=== PATIENT | female | born 1970 | race Caucasian/White ===

== ENCOUNTER 2018-05-25 19:50 | Inpatient (IN) ==
[2018-05-25] MEDS ORDERED: Morphine Sulfate Inj 2 MG/ML Vial ONE (20:00)
--- NOTE | 2018-05-25 20:06 | XR ---
EXAM DATE: 05/25/2018 8:02 PM EDT AGE/SEX: 89 years / Female INDICATIONS: Trauma alert, blunt force trauma from ladder. CLINICAL DATA: This is the patient's initial encounter. Patient reports that signs and symptoms have been present for 1 day and indicates a pain score of Nonresponsive. MEDICAL/SURGICAL HISTORY: Non-responsive. Non-responsive. COMPARISON: No prior exams available for comparison. FINDINGS: A single portable supine view the chest was obtained and demonstrate overlying artifact from a backbo michel. There is increased soft tissue density projected over the left side of the chest the heart size is at the upper limits of normal. The bony thorax is intact in appearance. There is no mediastinal sh ift. CONCLUSION: Fusing Machine Feeder soft tissue density over the left side of the chest which could be due to an overlying breast implant or soft tissue swelling. Infiltrate could also have this appearance. Electronically signed by: Javier Small MD 05/25/2018 8:05 PM EDT
--- NOTE | 2018-05-25 20:07 | XR ---
EXAM DATE: 05/25/2018 8:03 PM EDT AGE/SEX: 89 years / Female INDICATIONS: Trauma alert, blunt force trauma from ladder. CLINICAL DATA: This is the patient's initial encounter. Patient reports that signs and symptoms have been present for 1 day and indicates a pain score of Nonresponsive. MEDICAL/SURGICAL HISTORY: Non-responsive. Non-responsive. COMPARISON: No prior exams available for comparison. FINDINGS: A single AP view of the pelvis was obtained and demonstrates overlying artifact from a backboard. The hips are intact and there is no visualized fracture or malalignment. The pubic rami are unremarkable . The sacrum is within normal limits. CONCLUSION: Negative trauma study. Electronically signed by: Javier Small MD 05/25/2018 8:05 PM EDT
--- NOTE | 2018-05-25 20:10 | ED ---
HPI General Chief Complaint: Trauma Stated Complaint: Trauma Alert Time Seen by Provider: 05/25/18 22:10 Source: patient and EMS Mode of arrival: EMS Limitations: language barrier (Patient is Tajik-speaking, however the medical staff directorDomenic pacheco assisted with translation.) History of Present Illness HPI narrative: The patient is a reportedly 47 year old female who presents to the [facility] emergency department with a history of being called as a trauma alert prior to arrival related to a head injury. The patient was noted by ambulance services to have had a loss of consciousness after being hit in the head with the latter. The ladder fell off of the roof at the [facility]. The patient was standing by poolside when she was struck in the head and had a positive loss of consciousness. The patient was unconscious for a couple of minutes reportedly. The patient then had a return of her GCS back to a 15. The patient's pulse was in the 90s prior to arrival. Blood pressure was 130 systolic. The patient reports having a headache. She denies having any neck pain. She denies having any numbness or tingling to her extremities. She reports having some left upper back pain, thoracic pain. She denies having any shortness of breath. She denies having any abdominal pain. She denies having any vomiting or diarrhea. The patient reports that her tetanus has not been updated in the last 10 years. LMP status post hysterectomy Related Data Home Medications Medication Instructions Recorded Confirmed No Known Home Medications 05/25/18 05/25/18 Allergies Allergy/AdvReac Type Severity Reaction Status Date / Time No Known Allergies Allergy Verified 05/25/18 21:16 Review of Systems ROS: all other systems reviewed are negative (Except for that which is mentioned in the HPI.) [facility] Medical History Medical History H/O: hysterectomy (Acute) Patient denies medical problems (Acute) Surgical History Surgical History History of breast augmentation (Acute) Social History Social History Substance History: No History of Abuse Second Hand Smoke Exposure: No Smoking Status: Never smoker How Often Do You Have a Drink Containing Alcohol: 2 to 4 times a month Recent Travel in [place] within the Last 8 Weeks: No Recent Out of Country Travel within the Last 8 Weeks: No Immunization History Tetanus Immunization: >5 Years Exam Narrative Exam Narrative: General: The patient is a well-developed well-nourished female in no acute distress, pressure bandage in place over her head, no active bleeding to the pressure bandage is noted. The patient is brought in on a back board in full c-spine immobilization by emergency services. Head and Neck exam: Head is normocephalic, reported history of large scalp and upper forehead laceration, bleeding is controlled with a pressure bandage, therefore initial assessment was continued while the pressure bandage was maintained in place. No facial bone tenderness or increased facial bone mobility noted on palpation. Eyes: EOMI, pupils are equal round and reactive to light. Nose: Midline septum with pink mucous membranes Mouth: Dentition unremarkable. Moist mucus membranes. Posterior oropharynx is not erythematous. No tonsillar hypertrophy. Uvula midline. Airway patent. Neck: The patient is immobilized in a cervical collar. No tracheal deviation. The trachea appears midline. Cardiovascular: Regular rate and rhythm without murmurs, gallops, or rubs. No pulse deficit to the extremities on simultaneous auscultation and palpation of her radial artery. Lungs: Clear to auscultation bilaterally. No wheezes, rhonchi, or rales. No chest wall tenderness to palpation. No erythema or ecchymosis noted. No crepitus , step off, or flail segment noted. Abdomen: Soft, without tenderness to palpation in all 4 quadrants of the abdomen. No guarding, rebound, or rigidity. No erythema or ecchymosis noted. Extremities: No instability or pain noted on pelvic rock. No clubbing, cyanosis , or edema. 2+ pulses in all 4 extremities. No extremity tenderness or deformity noted on palpation or passive/ active range of motion. Back: The patient was log rolled off of the back board. No spinous process tenderness to palpation. No stepoff or crepitus noted. No costovertebral angle tenderness to palpation. No erythema or ecchymosis. Neurologic Exam: Cranial nerves 2-12 were intact on exam. Strength is 5/5 in all 4 extremities. No sensory deficits noted. Skin Exam: No rash noted. Intact skin that is warm and dry. Course Reevaluation(s) Reevaluation #1: Reevaluation the patient had her pressure bandage is removed and a large curvilinear scalp laceration was noted along the top of the patient' s skull, border between parietal and occipital scalp. There was a hematoma underlying the flap which was evacuated. Bleeding was controlled with a pressure bandage. Dr. Hendricks was available at the bedside to evaluate the wound. He recommended continuation of the pressure bandage. Consultations Consultation #1: The patient's case including history, vital signs prior to arrival, trauma alert status were discussed with Dr. Hendricks. He recommended that the patient be downgraded to a level 2 trauma alert as the patient did not meet criteria for a level 1 trauma alert as called by ambulance services. He recommended that I initially assess the patient and discuss further with him by phone. Time: 19:39 Consultation #2: The patient's case including history, pertinent physical examination findings, and laboratory studies were discussed with Dr. Rodriguez. He recommended that the patient be placed in a [place] J collar. Time: 21:28 Time: 22:03 Additional Consultation(s): I spoke to Dr. Rodriguez again, the neurosurgeon regarding this patient's case. We discussed the patient's cervical spine fracture which she reports is stable, he recommends continuation of the [place] J collar until he evaluates the patient in the morning. We also discussed the patient's comminuted mild compression fracture deformity at T5 with no retropulsion. He reports that this also appears to be stable. He will see the patient in the morning regarding these injuries. A call was placed out to Dr. Hendricks team to update him regarding the image findings. He recommends that the patient be admitted to a regular floor. After reexamination of the patient's scalp wound, bleeding is controlled. He requests that the patient's scalp wound be cleaned, stapled by the physician tax accounting assistantCat Pinto was consulted regarding wound irrigation and repair. Initial Documented Vital Signs Pulse Oximetry 100 05/25/18 19:51 Last Documented Vital Signs Temperature 98.3 F 05/26/18 12:00 Pulse Rate 86 05/26/18 12:00 Respiratory Rate 16 05/26/18 12:00 Blood Pressure 92/56 L 05/26/18 12:00 Pulse Oximetry 95 05/26/18 12:00 Procedures Laceration Laceration 1: Site: scalp Size (cm): 20 Description: linear Depth: simple, single layer Anesthetic used: lidocaine 1% Anesthesia technique:: local infiltration Amount (mL): 30 Pre-repair:: wound explored and irrigated extensively Number of sutures:: 44 Technique:: other (yudi) Critical Care Time Critical Care Time: Yes Total Critical Care Time: 37 Attestation: Aggregate critical care time was 37 minutes. Time to perform other separately billable procedures was not included in the critical care time. My time did not include minutes spent treating any other patients simultaneously or on activities that did not directly contribute to the patient's treatment. The services I provided to this patient were to treat and/or prevent clinically significant deterioration that could result in: Cardiovascular collapse from hemorrhagic shock, versus respiratory failure from significant head injury I provided critical care services requiring my management, as noted below: Chart data review, documentation time, medication orders and management, vital sign assessments/reviewing monitor data, ordering and reviewing lab tests, ordering and interpreting/reviewing x-rays and diagnostic studies, care of the patient and discussion of the patient with the admitting physicians. Medical Decision Making MDM Narrative Medical decision making narrative: with no acute fracture, no acute intracranial abnormality, CT scan of the C-spine showedDuring the course of the patient's emergency department visit, the patient's history, examination, and differential diagnosis were reviewed with the patient. The patient was placed on a color television console monitor with oximetry and frequent blood pressure monitoring. The patient had large-bore IVs placed in bilateral upper extremities. The patient started on normal saline IV fluids. An i-STAT with creatinine was ordered. Chest x-ray, pelvis x-ray was ordered. The patient was initially provided an update to her tetanus, Ancef 2 g IV was ordered, will saline IV fluids were started, the patient was given Zofran 4 mg IV for nausea, morphine 2 mg IV for pain. CT scan of the head, neck, facial bones, chest, abdomen and pelvis was ordered. The patient's i-STAT with creatinine was remarkable for a hemoglobin of 11.9, creatinine 0.8. The patient's chest x-ray in the trauma bay revealed what appeared to be increased haziness in the left lung field. A CT scan of the thorax has been ordered to further evaluate. The patient's lung olivas are partially obscured related to her breast implants. Pelvis x-ray showed no acute abnormality. The patient had a CT scan of the brain that showed soft tissue swelling over the upper skull, no other acute abnormality, CT scan of the cervical spine showed a nondisplaced horizontal fracture through the posterior lamina of the C6 vertebral body, CT scan of the facial bones showed no acute abnormality, CT scan of the thoracic spine revealed a comminuted mild compression fracture deformity at T5 vertebral body with no retropulsion, CT scan of the lumbar spine showed no acute abnormality, CT scan of the chest showed no acute visceral or lung abnormality, CT scan of the abdomen and pelvis showed no acute abnormality. The patient's case was discussed with the trauma surgeon, Dr. Hendricks as well as the neurosurgeon on-call, Dr. Rodriguez. The patient's results were discussed with the patient, including the plan of care. I explained that further testing and/ or monitoring is indicated based on the patient's history, examination, and/ or laboratory findings. Therefore, I recommended admission for additional evaluation. The patient expressed understanding and was agreeable with this plan. The patient was admitted to the hospital in guarded condition and sent to a bed under the care of trauma service. Differential Diagnosis Differential Diagnosis: Intracranial trauma, versus facial bone trauma, versus cervical spine trauma, versus thoracic injury, versus abdominal injury, versus pelvis injury Lab Data Lab results reviewed: Yes I reviewed the patient's lab results. Result diagrams: 05/26/18 06:45 05/26/18 06:45 Lab Results 05/25/18 05/25/18 05/25/18 Range/Units 19:51 19:51 19:51 WBC 9.8 (4.0-11.0) th/mm3 RBC 4.06 (4.00-5.30) mil/mm3 Hgb 11.4 L (11.6-15.3) gm/dL POC Hgb (Calc) 11.9 (11.6-15.3) g/dL Hct 35.2 (35.0-46.0) % POC Hct 35.0 (35-46.0) % MCV 86.5 (80.0-100.0) fL MCH 28.1 (27.0-34.0) pg MCHC 32.5 (32.0-36.0) % RDW 14.3 (11.6-17.2) % Plt Count 257 (150-450) th/mm3 MPV 8.2 (7.0-11.0) fL Prelim Diff (Auto) Slide review pending Neut % (Auto) 30.0 (16.0-70.0) % Lymph % (Auto) 60.8 H (9.0-44.0) % Tyler % (Auto) 6.2 (0.0-8.0) % Eos % (Auto) 2.0 (0.0-4.0) % Baso % (Auto) 1.0 (0.0-2.0) % Neut # (Auto) 2.9 (1.8-7.7) th/mm3 Lymph # (Auto) 5.9 H (1.0-4.8) th/mm3 Tyler # (Auto) 0.6 (0.0-0.9) th/mm3 Eos # (Auto) 0.2 (0.0-0.4) th/mm3 Baso # (Auto) 0.1 (0.0-0.2) th/mm3 WBC Differential Manual diff final Seg Neuts % (Manual) 29 (16-70) % Lymphocytes % (Manual) 63 H (9-44) % Monocytes % (Manual) 7 (0-8) % Eosinophils % (Manual) 1 (0-4) % Abs Neuts (Manual) 2.8 (1.8-7.7) th/mm3 Differential Comment . Platelet Estimate Normal (Normal) Platelet Morphology Normal (Normal) PT Cancelled INR Cancelled APTT Cancelled Fibrinogen (227-377) mg/dL POC Sodium 139 (137-144) mmol/L Sodium (136-145) meq/L POC Potassium 3.8 (3.6-5.0) mmol/L Potassium (3.5-5.1) meq/L POC Chloride 101 L (102-111) mmol/L Chloride (98-107) meq/L Carbon Dioxide (21.0-32.0) meq/L Anion Gap (5-15) meq/L POC BUN 16 (5-21) mg/dL BUN (7-18) mg/dL Creatinine (0.50-1.00) mg/dL POC Creatinine 0.8 (0.6-1.3) mg/dL Estimated GFR (>89) mL/min POC Glucose 120 H (68-110) mg/dL Random Glucose (74-106) mg/dL Calcium (8.5-10.1) mg/dL Prot Corrected Calcium (8.5-10.1) mg/dL Total Bilirubin (0.2-1.0) mg/dL AST (15-37) U/L ALT (10-53) U/L Alkaline Phosphatase (45-117) U/L Total Protein (6.4-8.2) g/dL Albumin (3.4-5.0) g/dL Beta HCG, Quant (0-5) mIU/mL Serum Alcohol (0-5) mg/dL Blood Type Antibody Screen 05/25/18 05/25/18 05/25/18 Range/Units 19:51 19:51 19:51 WBC (4.0-11.0) th/mm3 RBC (4.00-5.30) mil/mm3 Hgb (11.6-15.3) gm/dL POC Hgb (Calc) (11.6-15.3) g/dL Hct (35.0-46.0) % POC Hct (35-46.0) % MCV (80.0-100.0) fL MCH (27.0-34.0) pg MCHC (32.0-36.0) % RDW (11.6-17.2) % Plt Count (150-450) th/mm3 MPV (7.0-11.0) fL Prelim Diff (Auto) Neut % (Auto) (16.0-70.0) % Lymph % (Auto) (9.0-44.0) % Tyler % (Auto) (0.0-8.0) % Eos % (Auto) (0.0-4.0) % Baso % (Auto) (0.0-2.0) % Neut # (Auto) (1.8-7.7) th/mm3 Lymph # (Auto) (1.0-4.8) th/mm3 Tyler # (Auto) (0.0-0.9) th/mm3 Eos # (Auto) (0.0-0.4) th/mm3 Baso # (Auto) (0.0-0.2) th/mm3 WBC Differential Seg Neuts % (Manual) (16-70) % Lymphocytes % (Manual) (9-44) % Monocytes % (Manual) (0-8) % Eosinophils % (Manual) (0-4) % Abs Neuts (Manual) (1.8-7.7) th/mm3 Differential Comment Platelet Estimate (Normal) Platelet Morphology (Normal) PT 10.1 INR 1.0 APTT 21.8 L Fibrinogen 214 L (227-377) mg/dL POC Sodium (137-144) mmol/L Sodium (136-145) meq/L POC Potassium (3.6-5.0) mmol/L Potassium (3.5-5.1) meq/L POC Chloride (102-111) mmol/L Chloride (98-107) meq/L Carbon Dioxide (21.0-32.0) meq/L Anion Gap (5-15) meq/L POC BUN (5-21) mg/dL BUN (7-18) mg/dL Creatinine (0.50-1.00) mg/dL POC Creatinine (0.6-1.3) mg/dL Estimated GFR (>89) mL/min POC Glucose (68-110) mg/dL Random Glucose (74-106) mg/dL Calcium (8.5-10.1) mg/dL Prot Corrected Calcium (8.5-10.1) mg/dL Total Bilirubin (0.2-1.0) mg/dL AST (15-37) U/L ALT (10-53) U/L Alkaline Phosphatase (45-117) U/L Total Protein (6.4-8.2) g/dL Albumin (3.4-5.0) g/dL Beta HCG, Quant 2 (0-5) mIU/mL Serum Alcohol 139 H (0-5) mg/dL Blood Type B Negative Antibody Screen Negative 05/26/18 05/26/18 Range/Units 06:45 06:45 WBC 11.0 (4.0-11.0) th/mm3 RBC 3.07 L (4.00-5.30) mil/mm3 Hgb 8.8 L D (11.6-15.3) gm/dL POC Hgb (Calc) (11.6-15.3) g/dL Hct 26.4 L (35.0-46.0) % POC Hct (35-46.0) % MCV 86.0 (80.0-100.0) fL MCH 28.7 (27.0-34.0) pg MCHC 33.4 (32.0-36.0) % RDW 14.3 (11.6-17.2) % Plt Count 208 (150-450) th/mm3 MPV 8.3 (7.0-11.0) fL Prelim Diff (Auto) Neut % (Auto) 84.6 H (16.0-70.0) % Lymph % (Auto) 9.3 (9.0-44.0) % Tyler % (Auto) 5.8 (0.0-8.0) % Eos % (Auto) 0.0 (0.0-4.0) % Baso % (Auto) 0.3 (0.0-2.0) % Neut # (Auto) 9.3 H (1.8-7.7) th/mm3 Lymph # (Auto) 1.0 (1.0-4.8) th/mm3 Tyler # (Auto) 0.6 (0.0-0.9) th/mm3 Eos # (Auto) 0.0 (0.0-0.4) th/mm3 Baso # (Auto) 0.0 (0.0-0.2) th/mm3 WBC Differential . Seg Neuts % (Manual) (16-70) % Lymphocytes % (Manual) (9-44) % Monocytes % (Manual) (0-8) % Eosinophils % (Manual) (0-4) % Abs Neuts (Manual) (1.8-7.7) th/mm3 Differential Comment Auto diff final Platelet Estimate (Normal) Platelet Morphology (Normal) PT INR APTT Fibrinogen (227-377) mg/dL POC Sodium (137-144) mmol/L Sodium 140 (136-145) meq/L POC Potassium (3.6-5.0) mmol/L Potassium 4.3 (3.5-5.1) meq/L POC Chloride (102-111) mmol/L Chloride 107 (98-107) meq/L Carbon Dioxide 26.0 (21.0-32.0) meq/L Anion Gap 7 (5-15) meq/L POC BUN (5-21) mg/dL BUN 12 (7-18) mg/dL Creatinine 0.64 (0.50-1.00) mg/dL POC Creatinine (0.6-1.3) mg/dL Estimated GFR 80 L (>89) mL/min POC Glucose (68-110) mg/dL Random Glucose 127 H (74-106) mg/dL Calcium 7.2 L* (8.5-10.1) mg/dL Prot Corrected Calcium 8.0 L (8.5-10.1) mg/dL Total Bilirubin 0.2 (0.2-1.0) mg/dL AST 19 (15-37) U/L ALT 18 (10-53) U/L Alkaline Phosphatase 48 (45-117) U/L Total Protein 5.6 L (6.4-8.2) g/dL Albumin 3.0 L (3.4-5.0) g/dL Beta HCG, Quant (0-5) mIU/mL Serum Alcohol (0-5) mg/dL Blood Type Antibody Screen Imaging Data Radiologist's impression: Abdomen/Pelvis CT 05/25/18 00:00 CONCLUSION: 1. Negative trauma study. Chest CT 05/25/18 00:00 CONCLUSION: 1. Acute mild compression fracture deformity of one of the upper thoracic vertebral bodies with no retropulsion. 2. No evidence of visceral injury. The lungs are clear with no pneumothorax. Chest X-Ray 05/25/18 19:53 CONCLUSION: Care Worker soft tissue density over the left side of the chest which could be due to an overlying breast implant or soft tissue swelling. Infiltrate could also have this appearance. Pelvis X-Ray 05/25/18 19:53 CONCLUSION: Negative trauma study. Cervical Spine CT 05/25/18 19:55 CONCLUSION: 1. Nondisplaced horizontal fracture through the posterior lamina of the C6 vertebral body. Face CT 05/25/18 19:55 CONCLUSION: 1. Negative trauma study with no facial fracture. Head CT 05/25/18 19:55 CONCLUSION: 1. Soft tissue swelling over the upper skull with no acute fracture. 2. No intracranial hemorrhage or mass effect. Lumbar Spine CT 05/25/18 20:49 CONCLUSION: 1. Negative trauma CT with no acute fracture or malalignment. Thoracic Spine CT 05/25/18 20:49 CONCLUSION: 1. Comminuted mild compression fracture deformity of the T5 vertebral body with no retropulsion. Discharge Plan Discharge Disposition Patient Disposition: 30 Still Patient Discharge Condition Condition: Stable Discharge Order Discharge Orders: Discharge Order (Routine); Ordered 05/26/18 Ordered By: Amy Fraire Discharge Details Anticipated Discharge Date: 05/26/18 Diagnosis: Closed fracture of sixth cervical vertebra, Compression fracture, Head injury, Laceration of scalp Physicians Team ED Provider: Vidya Pereira ED Midlevel Provider: Tesfaye Chavez Primary Care Provider: UNKNOWN, Attending Provider: Theodore Ramirez Other Providers: Xander Rodriguez ; Donato Pineda ; Yan Alva ; [employer] [facility] ; Theodore Ramirez ; Amy Fraire ; John Cm ; Siri Oliver ; Ede Barfield ; Tequila Aguilar Status ED Status: Left Department Discharge Information Discharge Date/Time: 05/26/18 00:52
--- NOTE | 2018-05-25 20:10 | CT ---
EXAM DATE: 05/25/2018 8:07 PM EDT AGE/SEX: 89 years / Female INDICATIONS: Trauma alert; Ladder fell on head. CLINICAL DATA: This is the patient's initial encounter. Patient reports that signs and symptoms have been present for 1 day and indicates a pain score of 6/10. MEDICAL/SURGICAL HISTORY: None. None. RADIATION DOSE: 56.35 CTDI (mGy) COMPARISON: No prior exams available for comparison. TECHNIQUE: CT of the head without contrast. Using automated exposure control and adjustment of the mA and/or kV according to patient size, radiation dose was kept as low as reasonably achievable to ob tain optimal diagnostic quality images. DICOM format image data is available electronically for revi ew and comparison. FINDINGS: Cerebrum: The ventricles are normal for age. No evidence of midline shift, mass lesion, hemorrhage or acute infarction. No extraaxial fluid collections are seen. Posterior Fossa: The cerebellum and brainstem are intact. The 4th ventricle is midline. The cerebe llopontine angle is unremarkable. Extracranial: The visualized portion of the orbits is intact. Skull: The calvaria is intact. No evidence of skull fracture. Is soft tissue swelling over the uppe r skull. CONCLUSION: 1. Soft tissue swelling over the upper skull with no acute fracture. 2. No intracranial hemorrhage or mass effect. Electronically signed by: Javier Small MD 05/25/2018 8:08 PM EDT
--- NOTE | 2018-05-25 20:12 | CT ---
EXAM DATE: 05/25/2018 8:09 PM EDT AGE/SEX: 89 years / Female INDICATIONS: Trauma alert; Ladder fell on head. CLINICAL DATA: This is the patient's initial encounter. Patient reports that signs and symptoms have been present for 1 day and indicates a pain score of 7/10. MEDICAL/SURGICAL HISTORY: None. None. RADIATION DOSE: 21.96 CTDI (mGy) COMPARISON: No prior exams available for comparison. TECHNIQUE: Contiguous images in the axial and coronal planes were obtained using helical multirow de tector technique. Using automated exposure control and adjustment of the mA and/or kV according to p atient size, radiation dose was kept as low as reasonably achievable to obtain optimal diagnostic bushra lity images. DICOM format image data is available electronically for review and comparison. FINDINGS: Orbits: The orbital and infraorbital osseous structures are intact. The retroconal structures have a normal configuration. No radiopaque foreign bodies are seen. Nasal Bone: The nasal bone and maxillary spine are intact. Zygomatic Arches: Symmetric without evidence of fracture. Sinuses: The maxillary, ethmoid, and frontal sinuses are intact. No air-fluid levels seen. Nasal Cavity: The nasal septum is intact and midline. The lacrimal ducts are intact. Soft Tissues: No radiopaque foreign bodies seen. No soft-tissue swelling is seen. Intracranial: No intracranial air seen. Cribriform Plate: Grossly intact. CONCLUSION: 1. Negative trauma study with no facial fracture. Electronically signed by: Javier Small MD 05/25/2018 8:11 PM EDT
[2018-05-25 20:16] LABS: Baso # (Auto) 0.1 th/mm3 (0.0-0.2); Eos # (Auto) 0.2 th/mm3 (0.0-0.4); Hematocrit 35.2 % (35.0-46.0); Hemoglobin 11.4 gm/dL (11.6-15.3); Lymph # (Auto) 5.9 th/mm3 (1.0-4.8); Lymph % (Auto) 60.8 % (9.0-44.0); Mean Corpuscular HGB Conc 32.5 % (32.0-36.0); Mean Corpuscular Hemoglobin 28.1 pg (27.0-34.0); Mean Corpuscular Volume 86.5 fL (80.0-100.0); Mean Platelet Volume 8.2 fL (7.0-11.0); Mono # (Auto) 0.6 th/mm3 (0.0-0.9); Mono % (Auto) 6.2 % (0.0-8.0); Neut # (Auto) 2.9 th/mm3 (1.8-7.7); Platelet Count 257 th/mm3 (150-450); Red Blood Count 4.06 mil/mm3 (4.00-5.30); Red Cell Distribution Width 14.3 % (11.6-17.2); White Blood Count 9.8 th/mm3 (4.0-11.0)
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
[2018-05-25] MEDS ORDERED: Diphtheria/Tetanus/Pertussis Vaccine Inj 0.5 ML Syringe IM ONE (20:18)
[2018-05-25] MEDS ORDERED: ceFAZolin 2 GM/NS 100 ML IV IV.SIG STA ×2 (20:21)
[2018-05-25 20:24] LABS: Activated Partial Thrombo Time 21.8 sec (24.3-30.1); Prothrombin Time 10.1 sec (9.8-11.6)
[2018-05-25] MEDS ORDERED: Sod Chloride 0.9% Inj 1,000 ML IV.CONT SCH (20:30)
[2018-05-25 20:38] LABS: Beta HCG,Quantitative 2 mIU/mL (0-5)
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
[2018-05-25 20:51] LABS: Alcohol 139 mg/dL (0-5)
[2018-05-25] MEDS ORDERED: Morphine Inj 4 MG/ML Vial ONE (20:58)
[2018-05-25 21:01] LABS: Eosinophils 1 % (0-4); Lymphocytes 63 % (9-44); Monocytes 7 % (0-8); Platelet Estimate Normal (Normal); Platelet Morphology Normal (Normal)
[2018-05-25] MEDS ORDERED: Morphine Inj 4 MG/ML Vial IV.PUSH ONE (21:08)
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
--- NOTE | 2018-05-25 21:42 | CT ---
EXAM DATE: 05/25/2018 9:37 PM EDT AGE/SEX: 89 years / Female INDICATIONS: Trauma alert; ladder fell on head. CLINICAL DATA: This is the patient's initial encounter. Patient reports that signs and symptoms have been present for 1 day and indicates a pain score of 7/10. MEDICAL/SURGICAL HISTORY: None. Hysterectomy. RADIATION DOSE: 0 CTDI (mGy) ; Reconstructed from previous dataset, no dose [place] [facility] [place]/O [place], 05/25/2018. . TECHNIQUE: Contiguous axial images were acquired with a multirow detector CT scanner after intraveno us administration of 100 ml Omnipaque 350 (iohexol) nonionic water-soluble contrast as a cumulative dose for multiple exams. Multiplanar reconstructions in the sagittal and coronal plane were also per formed. Using automated exposure control and adjustment of the mA and/or kV according to patient size , radiation dose was kept as low as reasonably achievable to obtain optimal diagnostic quality images . DICOM format image data is available electronically for review and comparison. FINDINGS: Vertebrae: Normal vertebral body height. Discs: Preserved in height. Alignment: Normal. No subluxation. Post Contrast: No abnormal areas of enhancement are seen in the cord, dural or paraspinal regions. The axial images demonstrate that the vertebral bodies and posterior elements are intact. There is no evidence of disc protrusion or spinal stenosis. The visualized portions of the sacrum are intact. Th ere is a small apparent bone island in the left ilium. CONCLUSION: 1. Negative trauma CT with no acute fracture or malalignment. Electronically signed by: Javier Small MD 05/25/2018 9:40 PM EDT
[2018-05-25] MEDS: Sod Chloride 0.9% Inj 1,000 ML IV.CONT SCH (21:59)
[2018-05-25] MEDS ORDERED: Acetaminophen 325 MG Tablet PO PRN (22:09)
[2018-05-25] MEDS ORDERED: Morphine Inj 4 MG/ML Vial IV.PUSH PRN (22:09)
[2018-05-25] MEDS ORDERED: Lidocaine 1% Inj 30 ML Vial INFILTRATN ONE (22:10)
[2018-05-25] MEDS ORDERED: Lidocaine PF 1% Inj 2 ML Ampul ONE (22:45)
[2018-05-25] MEDS ORDERED: Pantoprazole Inj 40 MG Vial IV.PUSH SCH (23:00)
[2018-05-25 23:05] VITALS: RESP 16
[2018-05-26] MEDS: Sod Chloride 0.9% Inj 1,000 ML IV.CONT SCH ×2 (05:21→14:44)
[2018-05-26] MEDS ORDERED: ceFAZolin 2 GM Premix Inj 2 GM/50 ML PIGGYBACK IV.SIG SCH (06:00)
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
[2018-05-26] MEDS ORDERED: Morphine Inj 4 MG/ML Vial IV.PUSH PRN (06:49)
[2018-05-26 07:45] LABS: Baso % (Auto) 0.3 % (0.0-2.0); Hematocrit 26.4 % (35.0-46.0); Hemoglobin 8.8 gm/dL (11.6-15.3); Lymph % (Auto) 9.3 % (9.0-44.0); Mean Corpuscular HGB Conc 33.4 % (32.0-36.0); Mean Corpuscular Hemoglobin 28.7 pg (27.0-34.0); Mean Platelet Volume 8.3 fL (7.0-11.0); Mono # (Auto) 0.6 th/mm3 (0.0-0.9); Mono % (Auto) 5.8 % (0.0-8.0); Neut # (Auto) 9.3 th/mm3 (1.8-7.7); Neut % (Auto) 84.6 % (16.0-70.0); Platelet Count 208 th/mm3 (150-450); Red Blood Count 3.07 mil/mm3 (4.00-5.30); Red Cell Distribution Width 14.3 % (11.6-17.2)
[2018-05-26 08:14] LABS: Calcium 7.2 mg/dL (8.5-10.1); Potassium 4.3 meq/L (3.5-5.1); Total Protein 5.6 g/dL (6.4-8.2)
[2018-05-26] MEDS ORDERED: Docusate Sodium 100 MG Capsule PO SCH (09:00)
[2018-05-26 09:19] VITALS: O2SAT 95
[2018-05-26 13:14] VITALS: BP 92/56; PULSE 86; TEMP 98.3
[2018-05-26] MEDS ORDERED: CEFAZOLIN IV.SIG SCH (14:15)
[2018-05-26] MEDS ORDERED: SODIUM CHLOR 0.9% IV.SIG SCH (14:15)
[2018-05-26] MEDS ORDERED: ceFAZolin Inj 2,000 MG in Sodium Chlor 0.9% Inj 80 ML IV.SIG SCH (15:00)
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
== END 2018-05-26 19:50 | disposition home or self-care (01) ==
LOC: NEPI 19:50 → EDBD 21:04 → NEDA 21:04 → NEPHCDU 05-26 01:22
PROVIDERS: ADMIT Surgery; ATTEND Surgery